=== PATIENT | female | born 1950 | race Caucasian/White ===

== ENCOUNTER 2019-11-28 08:29 | Emergency (ER) | payer BC, MEDICARE ==
[2019-11-28 09:17] LABS: Bilirubin Negative (Negative); Blood, Urine Negative (Negative); Clarity Clear (Clear); Glucose, Urine (Dipstick) 100 mg/dL (Negative); Ketone, Urine Negative (Negative); Leukocyte Negative (Negative); Nitrite Negative (Negative); Protein, Urine (Dipstick) 100 mg/dL (Neg-Trace); Specific Gravity, Urine 1.025 (1.005-1.030); Urobilinogen 0.2 mg/dL (Less than 2)
[2019-11-28 09:37] LABS: RBC/HPF 0-3 HPF (0-3)
[2019-11-28 09:38] LABS: Bacteria/HPF Rare-Few HPF (None Seen); WBC/HPF 0-3 HPF (0-3)
[2019-11-28 09:49] LABS: #Basophils 0.1 thou/uL (0.0-0.2); #Eosinphils 0.3 thou/uL (0.0-0.7); #Lymphocytes 2.5 thou/uL (1.20-3.40); #Monocytes 0.4 thou/uL (0.11-0.59); #Neutrophils 3.9 thou/uL (1.40-6.50); %Eosinophils 4.1 % (0.0-10.0); %Lymphocytes 35.3 % (21.0-51.0); %Monocytes 5.6 % (0.0-10.0); Hemoglobin 13.4 g/dL (12.0-16.0); Mean Corpuscular HGB CONC 32.5 g/dL (32.0-36.0); Mean Corpuscular Hemoglobin 30.3 pg (27.0-31.0); Mean Corpuscular Volume 93.3 fL (78.0-98.0); Mean Platelet Volume 6.4 fL (7.4-10.4); Platelet Count 249 thou/uL (130-400); RBC Distribution Width 12.5 % (11.5-14.5); Red Blood Cell (RBC) Count 4.41 mill/uL (4.20-5.40); White Blood Cell (WBC) Count 7.2 thou/uL (4.8-10.8)
[2019-11-28 10:01] LABS: Anion Gap 17 mmol/L (10-20); BUN (Urea Nitrogen) 24 mg/dL (9.8-20.1); Calc. Creatinine Clearance 0 mL/min (70-130); Calcium 9.3 mg/dL (7.8-10.44); Carbon Dioxide 22 mmol/L (23-31); Chloride 102 mmol/L (98-107); Estimated GFR-MDRD 42; Glucose 225 mg/dL (80-115); Potassium 4.7 mmol/L (3.5-5.1); Sodium 136 mmol/L (136-145)
--- NOTE | 2019-11-28 10:30 | CT ---
CT ABDOMEN AND PELVIS WITHOUT CONTRAST: Date: 11/28/2019 COMPARISON: None. HISTORY: Right-sided abdominal pain with frequent urination. TECHNIQUE: Multiple contiguous axial images were obtained in a CT of the abdomen and pelvis without contrast. Sa gittal and coronal reformats were performed. FINDINGS: There is mild diffuse fatty infiltration of the liver. Calcifications in the liver and spleen are lik juan david from prior granulomatous disease. The gallbladder, kidneys, adrenal glands, and pancreas are unre markable, although evaluation is limited without IV contrast. The patient is status post hysterectomy. The large and small bowel are normal in caliber. There may b e a few scattered diverticula in the colon. The appendix is normal. No abdominal or pelvic lymphadeno ercia are seen. Atherosclerotic calcifications are seen in the aorta. Degenerative changes are seen in the spine. The visualized inferior thorax and abdominal wall soft ti ssues are unremarkable. IMPRESSION: 1. No evidence of acute intra-abdominal/pelvic abnormality. 2. Fatty liver. 3. Diverticulosis. POS: EAA
== END 2019-11-28 10:41 | disposition home or self-care (01) ==
LOC: MADERS 08:29
DX: R10.31 Right lower quadrant pain (principal); E11.65 Type 2 diabetes mellitus with hyperglycemia; R79.89 Other specified abnormal findings of blood chemistry; I10 Essential (primary) hypertension; F17.210 Nicotine dependence, cigarettes, uncomplicated; Z79.899 Other long term (current) drug therapy; Z79.82 Long term (current) use of aspirin; Z79.4 Long term (current) use of insulin
CPT/HCPCS: 36415; 74176; 80048; 81003; 81015; 85025; 87086

== ENCOUNTER 2020-02-24 10:02 | Outpatient (CLI) | payer MEDICARE ==
--- NOTE | 2020-02-24 10:58 | ULT ---
US Renal Bilateral STANDARD: 02/24/2020 10:10 AM CLINICAL HISTORY: Chronic kidney disease. STUDY: Renal ultrasound COMPARISON: None. FINDINGS: Right kidney: Echogenicity: Normal. Masses/cysts: None. Hydronephrosis: None. Calcifications: None. Length: 8.2 cm Left kidney: Echogenicity: Normal. Masses/cysts: None. Hydronephrosis: None. Calcifications: None. Length: 9.7 cm Limited visualization of the urinary bladder is unremarkable. IMPRESSION: Unremarkable renal ultrasound
== END 2020-02-24 10:03 | disposition home or self-care (01) ==
LOC: MADULT 10:02
PROVIDERS: ATTEND Internal Medicine Nephrology
DX: N18.30 Chronic kidney disease, stage 3 unspecified (principal)
CPT/HCPCS: 76770

== ENCOUNTER 2021-03-22 10:18 | Outpatient (CLI) | payer MEDICARE | END 2021-03-22 10:19 | disposition home or self-care (01) | LOC: MADRAD 10:18 | PROVIDERS: ATTEND Family Medicine | DX: M89.8X1 Other specified disorders of bone, shoulder (principal); M19.011 Primary osteoarthritis, right shoulder ==

== ENCOUNTER 2022-07-06 18:43 | Emergency (ER) | payer OTHER ==
[2022-07-06] MEDS ORDERED: Ondansetron ODT 4 MG TAB ONE (19:16)
== END 2022-07-06 20:50 | disposition home or self-care (01) ==
LOC: MADERS 18:43
DX: R11.2 Nausea with vomiting, unspecified (principal); R19.7 Diarrhea, unspecified; E11.9 Type 2 diabetes mellitus without complications; I10 Essential (primary) hypertension; F17.210 Nicotine dependence, cigarettes, uncomplicated; Z79.4 Long term (current) use of insulin; Z79.899 Other long term (current) drug therapy
CPT/HCPCS: 99283; Q0162

== ENCOUNTER 2023-05-12 15:47 | Emergency (ER) | payer OTHER ==
[2023-05-12] MEDS ORDERED: Acetaminophen 500 MG TAB ONE (16:46)
[2023-05-12 17:22] LABS: Bilirubin Negative (Negative); Blood, Urine Moderate (Negative); Glucose, Urine (Dipstick) Negative (Negative); Ketone, Urine Trace mg/dL (Negative); Leukocyte Moderate (Negative); Nitrite Positive (Negative); Protein, Urine (Dipstick) > or equal to 300 mg/dL (Neg-Trace); Specific Gravity, Urine 1.025 (1.005-1.030); Urobilinogen 0.2 mg/dL (Less than 2); pH, Urine 5.5 (5.0-9.0)
[2023-05-12 17:26] LABS: CAUTI Indications for Culture Pelvic or flank pain; Clarity Slightly Cloudy (Clear)
[2023-05-12 17:27] LABS: RBC/HPF Greater than 50 HPF (0-3); WBC/HPF Greater Than 50 HPF (0-3)
[2023-05-12 17:28] LABS: Bacteria/HPF 4+ HPF (None Seen)
[2023-05-12 17:29] LABS: Urine Culture Reflex Yes Yes
[2023-05-12 17:39] LABS: #Basophils 0.1 thou/uL (0.0-0.2); #Eosinphils 0.1 thou/uL (0.0-0.7); #Lymphocytes 0.7 thou/uL (1.20-3.40); #Monocytes 0.6 thou/uL (0.11-0.59); #Neutrophils 10.2 thou/uL (1.40-6.50); %Basophils 0.6 % (0.0-1.0); %Eosinophils 0.5 % (0.0-10.0); %Lymphocytes 5.9 % (21.0-51.0); %Monocytes 4.9 % (0.0-10.0); %Neutrophils 88.2 % (42.0-75.0); Hematocrit 31.6 % (36.0-47.0); Hemoglobin 10.6 g/dL (12.0-16.0); Mean Corpuscular HGB CONC 33.6 g/dL (32.0-36.0); Mean Corpuscular Hemoglobin 30.7 pg (27.0-31.0); Mean Corpuscular Volume 91.6 fl (78.0-98.0); Mean Platelet Volume 7.1 fL (7.4-10.4); Platelet Count 224 10x3/uL (130-400); RBC Distribution Width 12.6 % (11.5-14.5); Red Blood Cell (RBC) Count 3.45 mill/uL (4.20-5.40); White Blood Cell (WBC) Count 11.5 10x3/uL (4.8-10.8)
[2023-05-12] MEDS ORDERED: cefTRIAXone (ROCEPHIN) 2 GM VIAL ONE (17:47)
[2023-05-12] MEDS ORDERED: Sodium Chloride 0.9% 500 ML ONE ×2 (17:48→20:55)
[2023-05-12] MEDS ORDERED: Sodium Chloride 0.9% 100 ML ONE (17:48)
[2023-05-12 17:54] LABS: ALT (SGPT) 34 U/L (8-55); AST (SGOT) 27 U/L (5-34); Albumin 3.8 g/dL (3.4-4.8); Alkaline Phosphatase 134 U/L (40-110); Anion Gap 15 mmol/L (10-20); BUN (Urea Nitrogen) 26 mg/dL (9.8-20.1); Bilirubin, Total 0.3 mg/dL (0.2-1.2); Calc. Creatinine Clearance 0 mL/min (70-130); Carbon Dioxide 19 mmol/L (23-31); Chloride 105 mmol/L (98-107); Estimated GFR 31; Globulin 2.5 g/dL (2.4-3.5); Glucose 259 mg/dL (83-110); Potassium 4.4 mmol/L (3.5-5.1); Protein, Total 6.3 g/dL (5.8-8.1); Sodium 135 mmol/L (136-145)
[2023-05-12] MEDS ORDERED: Ondansetron PF 4 MG/2 ML Vial ONE (22:06)
[2023-05-12] MEDS ORDERED: Sodium Chloride 0.9% 250 ML 500 ML ONE (22:18)
[2023-05-12] MEDS ORDERED: Diazepam 10 MG/2 ML SYRINGE ONE (22:58)
[2023-05-12] MEDS ORDERED: Ketorolac Tromethamine 30 MG (1 mL) VIAL ONE (23:18)
== END 2023-05-12 23:43 | disposition short-term general hospital (02) ==
LOC: MERGE 15:47 → MADERS 15:47
DX: A41.9 Sepsis, unspecified organism (principal); N17.9 Acute kidney failure, unspecified; N10 Acute pyelonephritis; F17.210 Nicotine dependence, cigarettes, uncomplicated
CPT/HCPCS: 36416; 74176; 80053; 81001; 83605; 85025; 87040; 87077; 87086; 87149; 87186; 96361; 96365; 96375; J0696; J1885; J2405; J3360; J3490; J7030; J7050

== ENCOUNTER 2023-06-14 18:14 | Emergency (ER) | payer OTHER ==
[2023-06-14 19:04] LABS: Bilirubin Negative (Negative); Blood, Urine Moderate (Negative); Glucose, Urine (Dipstick) Negative (Negative); Ketone, Urine Negative (Negative); Leukocyte Moderate (Negative); Nitrite Positive (Negative); Protein, Urine (Dipstick) > or equal to 300 mg/dL (Neg-Trace); Urobilinogen 0.2 mg/dL (Less than 2); pH, Urine 5.5 (5.0-9.0)
[2023-06-14 19:18] LABS: Clarity Hazy (Clear)
[2023-06-14 19:25] LABS: Bacteria/HPF 2+ HPF (None Seen); CAUTI Indications for Culture Dysuria,urgency,freq; Urine Culture Reflex Yes Yes; WBC/HPF Greater Than 50 HPF (0-3)
[2023-06-14 19:45] LABS: #Basophils 0.1 thou/uL (0.0-0.2); #Eosinphils 0.1 thou/uL (0.0-0.7); #Lymphocytes 0.9 thou/uL (1.20-3.40); #Monocytes 0.6 thou/uL (0.11-0.59); #Neutrophils 11.5 thou/uL (1.40-6.50); %Basophils 0.4 % (0.0-1.0); %Eosinophils 0.4 % (0.0-10.0); %Lymphocytes 7.1 % (21.0-51.0); %Monocytes 4.7 % (0.0-10.0); %Neutrophils 87.4 % (42.0-75.0); Hematocrit 32.3 % (36.0-47.0); Hemoglobin 10.9 g/dL (12.0-16.0); Mean Corpuscular HGB CONC 33.7 g/dL (32.0-36.0); Mean Corpuscular Hemoglobin 29.8 pg (27.0-31.0); Mean Corpuscular Volume 88.5 fl (78.0-98.0); Mean Platelet Volume 7.2 fL (7.4-10.4); Platelet Count 206 10x3/uL (130-400); RBC Distribution Width 12.4 % (11.5-14.5); Red Blood Cell (RBC) Count 3.65 mill/uL (4.20-5.40); White Blood Cell (WBC) Count 13.2 10x3/uL (4.8-10.8)
[2023-06-14] MEDS ORDERED: cefTRIAXone (ROCEPHIN) 2 GM VIAL ONE (19:50)
[2023-06-14] MEDS ORDERED: Sodium Chloride 0.9% 100 ML ONE ×2 (19:50→23:55)
[2023-06-14] MEDS ORDERED: Ondansetron PF 4 MG/2 ML Vial ONE (19:50)
[2023-06-14] MEDS ORDERED: Sodium Chloride 0.9% 500 ML ONE (19:50)
[2023-06-14] MEDS ORDERED: Acetaminophen 500 MG TAB ONE (19:50)
[2023-06-14 20:06] LABS: ALT (SGPT) 22 U/L (8-55); AST (SGOT) 16 U/L (5-34); Albumin 4.2 g/dL (3.4-4.8); Alkaline Phosphatase 133 U/L (40-110); Anion Gap 18 mmol/L (10-20); BUN (Urea Nitrogen) 30 mg/dL (9.8-20.1); Bilirubin, Total 0.6 mg/dL (0.2-1.2); Calc. Creatinine Clearance 0 mL/min (70-130); Calcium 9.4 mg/dL (7.8-10.44); Carbon Dioxide 16 mmol/L (23-31); Chloride 106 mmol/L (98-107); Estimated GFR 45; Globulin 2.5 g/dL (2.4-3.5); Glucose 226 mg/dL (83-110); Magnesium 1.5 mg/dL (1.6-2.6); Potassium 3.9 mmol/L (3.5-5.1); Protein, Total 6.7 g/dL (5.8-8.1); Sodium 136 mmol/L (136-145)
[2023-06-14] MEDS ORDERED: Magnesium Oxide 400 MG TAB ONE (21:07)
[2023-06-14] MEDS ORDERED: Meropenem 1 GM VIAL ONE (23:55)
== END 2023-06-15 08:34 | disposition short-term general hospital (02) ==
LOC: MADERS 18:14
DX: N39.0 Urinary tract infection, site not specified (principal); N17.9 Acute kidney failure, unspecified; E83.42 Hypomagnesemia; E11.9 Type 2 diabetes mellitus without complications; I10 Essential (primary) hypertension; E78.00 Pure hypercholesterolemia, unspecified; F17.210 Nicotine dependence, cigarettes, uncomplicated; Z79.82 Long term (current) use of aspirin; Z79.4 Long term (current) use of insulin; Z79.899 Other long term (current) drug therapy
CPT/HCPCS: 74177; 80053; 81001; 83605; 83735; 83880; 85025; 87040; 87077; 87086; 87186; 96365; 96367; 96375; J0696; J2185; J2405; J3490; J7030

== ENCOUNTER 2023-07-06 08:36 | Emergency (ER) | payer OTHER ==
[2023-07-06 09:33] LABS: #Basophils 0.1 thou/uL (0.0-0.2); #Eosinphils 0.1 thou/uL (0.0-0.7); #Monocytes 0.7 thou/uL (0.11-0.59); #Neutrophils 9.3 thou/uL (1.40-6.50); %Basophils 0.5 % (0.0-1.0); %Eosinophils 0.7 % (0.0-10.0); %Lymphocytes 16.5 % (21.0-51.0); %Monocytes 5.9 % (0.0-10.0); %Neutrophils 76.4 % (42.0-75.0); Hematocrit 36.7 % (36.0-47.0); Hemoglobin 11.6 g/dL (12.0-16.0); Mean Corpuscular HGB CONC 31.5 g/dL (32.0-36.0); Mean Corpuscular Hemoglobin 28.1 pg (27.0-31.0); Mean Corpuscular Volume 89.2 fl (78.0-98.0); Mean Platelet Volume 6.3 fL (7.4-10.4); Platelet Count 251 10x3/uL (130-400); RBC Distribution Width 12.9 % (11.5-14.5); Red Blood Cell (RBC) Count 4.12 mill/uL (4.20-5.40); White Blood Cell (WBC) Count 12.2 10x3/uL (4.8-10.8)
[2023-07-06 09:37] LABS: Prothrombin Time 12.8 sec (12.0-14.7)
[2023-07-06 09:38] LABS: PTT 25.9 sec (22.9-36.1)
[2023-07-06] MEDS ORDERED: Dicyclomine 20 MG/2 ML VIAL ONE (09:39)
[2023-07-06] MEDS ORDERED: Lactated Ringer's 1,000 ML ONE ×2 (09:39→10:55)
[2023-07-06] MEDS ORDERED: Ondansetron PF 4 MG/2 ML Vial ONE ×2 (09:39→11:01)
[2023-07-06 09:46] LABS: ALT (SGPT) 14 U/L (8-55); AST (SGOT) 14 U/L (5-34); Albumin 4.4 g/dL (3.4-4.8); Alkaline Phosphatase 119 U/L (40-110); Anion Gap 18 mmol/L (10-20); BUN (Urea Nitrogen) 32 mg/dL (9.8-20.1); Bilirubin, Total 0.5 mg/dL (0.2-1.2); Calc. Creatinine Clearance 0 mL/min (70-130); Calcium 9.7 mg/dL (7.8-10.44); Carbon Dioxide 19 mmol/L (23-31); Chloride 105 mmol/L (98-107); Estimated GFR 32; Globulin 2.9 g/dL (2.4-3.5); Glucose 167 mg/dL (83-110); Lipase 12 U/L (8-78); Potassium 4.6 mmol/L (3.5-5.1); Protein, Total 7.3 g/dL (5.8-8.1); Sodium 137 mmol/L (136-145)
[2023-07-06 10:32] LABS: Bilirubin Negative (Negative); Blood, Urine Negative (Negative); Clarity Clear (Clear); Glucose, Urine (Dipstick) Negative (Negative); Ketone, Urine Negative (Negative); Leukocyte Negative (Negative); Nitrite Negative (Negative); Protein, Urine (Dipstick) Negative (Neg-Trace); Urobilinogen 0.2 mg/dL (Less than 2)
[2023-07-06 10:36] LABS: CAUTI Indications for Culture Dysuria,urgency,freq
[2023-07-06 10:37] LABS: Bacteria/HPF Rare-Few HPF (None Seen); RBC/HPF 0-3 HPF (0-3); Squamous Epithelial 0-3 HPF (0-3); WBC/HPF 0-3 HPF (0-3)
[2023-07-06 10:39] LABS: Urine Culture Reflex No No
[2023-07-06] MEDS ORDERED: Morphine 4 MG/ML VIAL ONE (10:55)
[2023-07-06 11:32] LABS: Magnesium 2.1 mg/dL (1.6-2.6)
[2023-07-06 19:07] LABS: Campy jejuni + coli by PCR Negative (Negative); STEC Shiga Toxin 1+2 Negative (Negative); Salmonella spp. by PCR Negative (Negative); Shigella spp + EIEC by PCR Negative (Negative)
== END 2023-07-06 13:20 | disposition short-term general hospital (02) ==
LOC: MADERS 08:36
DX: K52.9 Noninfective gastroenteritis and colitis, unspecified (principal); K92.2 Gastrointestinal hemorrhage, unspecified; N17.9 Acute kidney failure, unspecified; Q60.0 Renal agenesis, unilateral; E11.9 Type 2 diabetes mellitus without complications; I10 Essential (primary) hypertension; E78.00 Pure hypercholesterolemia, unspecified; N39.0 Urinary tract infection, site not specified; F17.210 Nicotine dependence, cigarettes, uncomplicated; Z79.4 Long term (current) use of insulin; Z79.82 Long term (current) use of aspirin; Z79.899 Other long term (current) drug therapy
CPT/HCPCS: 74177; 80053; 81001; 83605; 83690; 83735; 85025; 85610; 85730; 87040; 87149; 87324; 87449; 87505; 94760; 96361; 96372; 96374; 96375; 96376; J2270; J2405; J7120

== ENCOUNTER 2023-09-13 09:14 | Emergency (ER) | payer MEDICARE, OTHER ==
[2023-09-13] MEDS ORDERED: methylPREDNISolone Acetate 80 mg (1 mL) VIAL ONE (09:47)
== END 2023-09-13 10:12 | disposition home or self-care (01) ==
LOC: MADERS 09:14
DX: J01.00 Acute maxillary sinusitis, unspecified (principal); E11.9 Type 2 diabetes mellitus without complications; E78.5 Hyperlipidemia, unspecified; I10 Essential (primary) hypertension; F17.210 Nicotine dependence, cigarettes, uncomplicated
CPT/HCPCS: 96372; 99283; J1040

== ENCOUNTER 2024-03-08 08:09 | Emergency (ER) | payer OTHER | END 2024-03-08 09:15 | disposition home or self-care (01) | LOC: MADERS 08:09 | DX: J06.9 Acute upper respiratory infection, unspecified (principal); I10 Essential (primary) hypertension; E11.9 Type 2 diabetes mellitus without complications; Z55.6 Problems related to health literacy; Z79.4 Long term (current) use of insulin; Z87.891 Personal history of nicotine dependence | CPT/HCPCS: 71045; 87081; 87430; 93005 ==

== ENCOUNTER 2024-05-02 09:02 | Emergency (ER) | payer OTHER ==
[2024-05-02 09:20] LABS: Bilirubin Negative (Negative); Blood, Urine Negative (Negative); Clarity Clear (Clear); Glucose, Urine (Dipstick) Negative (Negative); Ketone, Urine Negative (Negative); Leukocyte Small (Negative); Nitrite Negative (Negative); Protein, Urine (Dipstick) Negative (Neg-Trace); Specific Gravity, Urine 1.025 (1.005-1.030); Urobilinogen 0.2 mg/dL (Less than 2); pH, Urine 5.5 (5.0-9.0)
[2024-05-02 09:28] LABS: Bacteria/HPF Rare-Few HPF (None Seen); CAUTI Indications for Culture Dysuria,urgency,freq; RBC/HPF 0-3 HPF (0-3)
[2024-05-02 09:29] LABS: Urine Culture Reflex No No
== END 2024-05-02 09:38 | disposition home or self-care (01) ==
LOC: MADERS 09:02
DX: N39.0 Urinary tract infection, site not specified (principal); E78.00 Pure hypercholesterolemia, unspecified; E11.9 Type 2 diabetes mellitus without complications; I10 Essential (primary) hypertension; Z79.4 Long term (current) use of insulin; Z79.82 Long term (current) use of aspirin; Z87.891 Personal history of nicotine dependence; Z79.899 Other long term (current) drug therapy
CPT/HCPCS: 81001; 99283